=== PATIENT | male | born 1985 | race Caucasian/White ===

== ENCOUNTER → 2022-01-14 08:51 | Outpatient (BNVA) | payer MEDICAID, SELFPAY | PROVIDERS: Visit Provider Physician Assistant | DX: M47.22 Other spondylosis with radiculopathy, cervical region (principal); M54.6 Pain in thoracic spine; M47.814 Spondylosis without myelopathy or radiculopathy, thoracic region | CPT/HCPCS: 72050; 72072 ==

== ENCOUNTER 2022-07-15 13:16 | Emergency (ER) | payer MEDICAID, SELFPAY ==
[2022-07-15 13:40] VITALS: BP 134/83; PULSE 68; RESP 16; TEMP 36.6; O2SAT 99
--- NOTE | 2022-07-15 13:45 | PC.NURSE ---
Pt placed in ER posey bed, report to charge nurse Kaila SANTANA and Dr Kay
--- NOTE | 2022-07-15 14:02 | CT_ITS ---
WS: [id number] CT CERVICAL TRAUMA TECHNIQUE: Noncontrast CT of the cervical spine with coronal and sagittal reformatted images. CLINICAL INFORMATION: trauma COMPARISON: None. DLP: 1353.[address] scans at [facility] use at least one of these dose optimization techniques: automated e xposure control; mA and/or kV adjustment per patient size (includes targeted exams where dose is matc hed to clinical indication); or iterative reconstruction. FINDINGS:Mild compression superior endplate T1 with mild anterior wedging and tiny anterior superior corner fracture or osteophyte. This is age indeterminant and could be further evaluated with MRI. Mild central canal stenosis C6-C7 due to disc osteophyte complex. Mild bilateral foraminal narrowing. Mild Facet arthropathy. Mild bony foraminal narrowing RIGHT C3-C4 and C4-C5. Straightening of the normal cervical lordosis. Normal craniocervical junction. Normal C1-C2 articulat ion. Dens is normal in appearance. Normal occipital condyles. No high-grade spinal canal narrowing. N ormal C1 ring. Normal prevertebral soft tissues. Mastoids air cells are well aerated. CT/CT cervical spin wo con* [id number] IMPRESSION: 1. Mild compression superior endplate T1 with mild anterior wedging and tiny a nterior superior corner fracture or osteophyte. This is age indeterminant and c ould be further evaluated with MRI. 2. Mild central canal stenosis C6-C7 due to disc osteophyte complex with mild bilateral foraminal narrowing. Mild facet arthropathy at this level. 3. Mild bony foraminal narrowing RIGHT C3-C4, RIGHT C4-C5, and bilateral C6-C7 . 4. Mild facet arthropathy worse at C6-C7. Notified Marvin Kay DO at 07/15/2022 3:44 PM.
--- NOTE | 2022-07-15 14:04 | CT_ITS ---
WS: [id number] EXAMINATION: CT head wo con* [id number] REASON FOR EXAM: trauma COMPARISON: None available. ORDER DATE: 07/15/2022 2:24 PM TOTAL EXAM DLP: 1353.[address] scans at [facility] use at least one of these dose optimization techniques: automated ex posure control; mA and/or kV adjustment per patient size (includes targeted exams where dose is match ed to clinical indication); or iterative reconstruction. TECHNIQUE: AXIAL IMAGING WITH 2-D REFORMATS WITHOUT CONTRAST FINDINGS: Extra axial spaces: Normal in size and morphology for the patient's age.. Hemorrhage: No evidence of subarachnoid hemorrhage. Ventricular system: Normal in size and morphology for the patient's age.. Basal cisterns: The basilar cisterns are patent.. Cerebral parenchyma: Burris-white matter differentiation is maintained.. Midline shift: No midline shift or mass effect. . Cerebellum: Normal. Brainstem: Normal. Calvarium: Intact. Focal convex bulge which is well-circumscribed and contains a tiny central density that may represent some calcification is located in the right forehead. Vascular system: Normal. Visualized Paranasal sinuses: Partially visualized demonstrate extensive infiltrate near completely o pacifying the ethmoidal sinuses with minor mucosal thickening in the base of the frontal sinuses and visualized maxillary sinuses.. Visualized Orbits unremarkable CT/CT head wo con* [id number] IMPRESSION: Focal nodule in the subcutaneous tissue of the anterior scalp a represent a adeel aceous cyst, dermoid, or chronic hematoma having underwent some calcification, physical examination recommended for further evaluation. Acute ethmoid sinusitis with minor mucosal changes in the additional sinuses.
--- NOTE | 2022-07-15 14:16 | ED_ITS ---
HPI - Fall General: Chief Complaint: Fall Stated Complaint: fall off a backhoe Time Seen by Provider: 07/15/22 13:50 Source: patient Mode of arrival: ambulatory History of Present Illness: 36-year-old female presents emergency room he fell 4 to 5 feet landing on his head and neck this fall was partially broken when his left hip hit a tire but it spun his upper torso around so he landed on his neck and head. There was a potential brief loss of consciousness. He is having severe pain radiating down his right arm is also having discomfort into his right leg. He pain is worsened whenever he moves his arm or moves his head in the least he is splinting his pain on the exam cot when I first seen the patient. He is not on any anticoagulants no significant past medical history MD complaint: fall Fall from: from height (distance) (4 to 5 feet) Fall witnessed: yes, by bystander Place fall occurred: work Loss of consciousness: Unsure Prolonged down time: no Symptoms prior to fall: none Context: tripped/slipped Location of injury: head and neck Location of injury - extremities: Right: arm Quality: burning and sharp Associated symptoms-after fall: Reports neck pain; Denies abdominal pain, chest pain, confusion, difficulty walking, headache(s), hematuria, lightheadedness, numbness, short of breath, vertigo or weakness Review of Systems Const: Denies: fever(s), chills, body aches, change in appetite, fatigue or malaise ENMT: Denies: throat pain, ear or mastoid pain, nasal discharge or nasal congestion Card: Denies: chest pain or lightheadedness Resp: Denies: dyspnea, productive cough or non-productive cough GI: Denies: abdominal pain : Denies: hematuria Musc: Reports: neck pain Skin/Breast: Denies: rash or pruritus Neuro: Denies: headache(s), difficulty walking, vertigo or confusion Physical Exam Const: COMMON NORMALS: no acute distress GENERAL APPEARANCE: cooperative and comfortable ORIENTATION/CONSCIOUSNESS: Yes awake, Yes oriented to person, Yes oriented to place and Yes oriented to time HENMT: COMMON NORMALS: normocephalic, atraumatic and hearing grossly normal bilaterally HEAD & SCALP: normocephalic and atraumatic Neck/C-Spine: CERVICAL SPINE: Yes pain with cervical ROM and Yes Cervical spine tenderness Resp: COMMON NORMALS: normal respiratory effort, No retractions, No use of accessory muscles and clear to auscultation bilaterally AUSCULTATION: clear to auscultation bilaterally Cardio: COMMON NORMALS: regular rate, regular rhythm and No murmurs present (Cardio) RATE: regular rate RHYTHM: regular rhythm GI: COMMON NORMALS: Soft to palpation and No hepatosplenomegaly present AUSCULTATION: Yes normoactive bowel sounds PALPATION: Yes Soft to palpation, No Tenderness to palpation present (GI), No Guarding due to palpation present (GI) and Yes No hepatosplenomegaly present Extremity: COMMON NORMALS: normal to inspection, capillary refill normal, no clubbing, cyanosis or edema, no calf tenderness and no pedal edema Neuro: SENSORIUM/ORIENTATION: Yes oriented to person, Yes oriented to place and Yes oriented to time Skin: COMMON NORMALS: no rashes or lesions noted GENERAL SKIN EXAM: no rashes or lesions noted Course Vital Signs: Vital signs: Vital Signs Temperature 97.8 F 07/15/22 13:40 Pulse Rate 65 07/15/22 18:32 Respiratory Rate 17 07/15/22 18:32 Blood Pressure 134/83 07/15/22 13:40 Pulse Oximetry 94 07/15/22 18:32 Oxygen Delivery Me thod Room Air 07/15/22 13:40 MDM - Fall Medical Decision Making CT shows questionable T1 compression fracture MRI shows same suspect that is acute given his pain level and recent events no cord compression or nerve root compression at this time. We will discharge patient home set him up with steroid taper pain medication muscle relaxers follow-up in orthopedic spine clinic return if is worsening symptoms Medical Records I reviewed the patient's medical records. Lab Data I reviewed the patient's lab results. 07/15/22 14:17 07/15/22 14:17 Radiology Impressions Cervical Spine CT 07/15/22 14:02 IMPRESSION: 1. Mild compression superior endplate T1 with mild anterior wedging and tiny anterior superior corner fracture or osteophyte. This is age indeterminant and could be further evaluated with MRI. 2. Mild central canal stenosis C6-C7 due to disc osteophyte complex with mild bilateral foraminal narrowing. Mild facet arthropathy at this level. 3. Mild bony foraminal narrowing RIGHT C3-C4, RIGHT C4-C5, and bilateral C6-C7. 4. Mild facet arthropathy worse at C6-C7. Notified Marvin Kay DO at 07/15/2022 3:[address] 07/15/22 14:04 IMPRESSION: Focal nodule in the subcutaneous tissue of the anterior scalp a represent a sebaceous cyst, dermoid, or chronic hematoma having underwent some calcification, physical examination recommended for further evaluation. Acute ethmoid sinusitis with minor mucosal changes in the additional sinuses. Cervical Spine MRI 07/15/22 15:49 IMPRESSION: 1. No acute findings. 2. Chronic anterior/superior endplate T1 10% compression deformity is unchanged with the comparison CT scan. 3. Multilevel degenerative changes with mild spinal canal stenosis at C6-C7 as described. Laboratory Results WBC 6.6 10^3/uL (4.0-10.0) 07/15/22 14:17 RBC 5.18 10^6/uL (4.1-5.3) 07/15/22 14:17 Hgb 16.2 g/dL (11.7-16.6) 07/15/22 14:17 Hct 45.9 % (42.0-52.0) 07/15/22 14:17 MCV 88.6 fl (80-94) 07/15/22 14:17 MCH 31.3 pg (28.0-34.0) 07/15/22 14:17 MCHC 35.3 g/dL (30.0-36.0) 07/15/22 14:17 RDW 11.6 % (12.1-15.1) L 07/15/22 14:17 Plt Count 266 10^3/cmm (130-400) 07/15/22 14:17 MPV 9.3 fL (7.4-10.4) 07/15/22 14:17 Neut % (Auto) 68.1 % 07/15/22 14:17 Lymph % (Auto) 20.2 % 07/15/22 14:17 Drew % (Auto) 8.5 % 07/15/22 14:17 Eos % (Auto) 2.7 % 07/15/22 14:17 Baso % (Auto) 0.3 % 07/15/22 14:17 Neut # (Auto) 4.47 10^3/uL (1.8-7.7) 07/15/22 14:17 Lymph # (Auto) 1.3 10^3/uL (0.8-4.8) 07/15/22 14:17 Drew # (Auto) 0.6 10^3/uL (0.2-0.9) 07/15/22 14:17 Eos # (Auto) 0.2 10^3/uL (0.0-0.8) 07/15/22 14:17 Baso # (Auto) 0.0 10^3/uL (0.0-0.1) 07/15/22 14:17 Nucleated RBC % (auto) 0 % 07/15/22 14:17 Nucleated RBCs # 0.0 /100WBC 07/15/22 14:17 Sodium 138 mmol/L (136-145) 07/15/22 14:17 Potassium 4.1 mmol/L (3.5-5.1) 07/15/22 14:17 Chloride 103 mmol/L (98-107) 07/15/22 14:17 Carbon Dioxide 26 mmol/L (22-29) 07/15/22 14:17 Anion Gap 13.1 (5-19) 07/15/22 14:17 BUN 12 mg/dL (6-20) 07/15/22 14:17 Creatinine 1.0 mg/dL (0.7-1.2) 07/15/22 14:17 GFR Calculation 85.0 mL/min (90-130) L 07/15/22 14:17 Glucose 72 mg/dL (65-115) 07/15/22 14:17 Calculated Osmolality 284 mOsm/kg (285-295) L 07/15/22 14:17 Calcium 8.4 mg/dL (8.5-10.5) L 07/15/22 14:17 Total Bilirubin 0.4 mg/dL (0.15-1.2) 07/15/22 14:17 AST 21 U/L (0-40) 07/15/22 14:17 ALT 32 U/L (0-41) 07/15/22 14:17 Alkaline Phosphatase 85 U/L (40-130) 07/15/22 14:17 Total Protein 7.0 g/dL (6.6-8.7) 07/15/22 14:17 Albumin 4.1 g/dL (3.5-5.2) 07/15/22 14:17 Globulin 2.9 g/dL (1.3-4.6) 07/15/22 14:17 Discharge Plan Discharge Patient Disposition: Home Clinical Impression: Compression fracture of thoracic vertebra Condition: Stable Prescriptions: New tizanidine 4 mg tablet 4 mg PO Q6H PRN (Reason: muscle spasticity) Qty: 20 0RF Rx Instructions: do not exceed 3 doses per 24 hrs hydrocodone-acetaminophen 5-325 mg tablet 1 tab PO Q6H PRN (Reason: pain) Qty: 20 0RF prednisone 20 mg tablet 20 mg PO TID Qty: 15 0RF Rx Instructions: 1 p.o. 3 times daily x3 days, 1 p.o. twice daily x2 days, 1 p.o. daily x2 days Discontinued prednisone 20 mg tablet 20 mg PO DAILY Qty: 15 0RF Rx Instructions: 60 mg day 1.2.3. 40 mg day 4.5 20 mg day 6.7 hydrocodone-acetaminophen 5-325 mg tablet 1 tab PO .q4-6 PRN (Reason: pain) 5 Days Qty: 30 0RF Discharge Orders: Discharge ED (Routine); Ordered 07/15/22 Ordered By: Marvin Kay Discharge Diet: Usual diet Discharge Activity: Resume usual activity Patient Instructions: Opioid Safety, Pain Management Activity Restrictions/Additional Instructions: You are seen today with a thoracic compression fracture after your fall. MRI showed no neural impingement and no acute narrowing of the spinal canal. special events manager will make arrangements for you to follow-up with Dr. Block at the orthopedics clinic. Coding Level of Care Code ED Skin Diving Teacher for Curtis Juarez
[2022-07-15 14:23] VITALS: RESP 17
[2022-07-15] MEDS: morphine 4 mg/mL SDV 1 mL IVP ×3 (14:23→18:18)
[2022-07-15] MEDS: dexamethasone 10 mg/mL INJ IVP (14:23)
[2022-07-15 14:26] LABS: Basophils % 0.3 %; Eosinophils # 0.2 10^3/uL (0.0-0.8); Eosinophils % 2.7 %; Hematocrit 45.9 % (42.0-52.0); Hemoglobin 16.2 g/dL (11.7-16.6); Lymphocytes # 1.3 10^3/uL (0.8-4.8); Lymphocytes % 20.2 %; Mean Corpuscular HGB Conc 35.3 g/dL (30.0-36.0); Mean Corpuscular Hemoglobin 31.3 pg (28.0-34.0); Mean Corpuscular Volume 88.6 fl (80-94); Mean Platelet Volume 9.3 fL (7.4-10.4); Monocytes # 0.6 10^3/uL (0.2-0.9); Monocytes % 8.5 %; Neutrophils # 4.47 10^3/uL (1.8-7.7); Neutrophils % 68.1 %; Nucleated Red Blood Cells % 0 %; Platelet Count 266 10^3/cmm (130-400); Red Blood Count 5.18 10^6/uL (4.1-5.3); Red Cell Distribution Width 11.6 % (12.1-15.1); White Blood Count 6.6 10^3/uL (4.0-10.0)
[2022-07-15 14:50] LABS: Alanine Aminotransferase 32 U/L (0-41); Albumin Level 4.1 g/dL (3.5-5.2); Alkaline Phosphatase 85 U/L (40-130); Anion Gap 13.1 (5-19); Aspartate Amino Transferase 21 U/L (0-40); Blood Urea Nitrogen 12 mg/dL (6-20); Calcium 8.4 mg/dL (8.5-10.5); Carbon Dioxide 26 mmol/L (22-29); Chloride 103 mmol/L (98-107); Globulin 2.9 g/dL (1.3-4.6); Glucose 72 mg/dL (65-115); Osmolality Calculated 284 mOsm/kg (285-295); Potassium 4.1 mmol/L (3.5-5.1); Sodium 138 mmol/L (136-145); Total Bilirubin 0.4 mg/dL (0.15-1.2)
[2022-07-15 15:41] VITALS: RESP 18
--- NOTE | 2022-07-15 15:49 | MRR_ITS ---
PROCEDURE INFORMATION: Exam: MR Cervical Spine Without Contrast Exam date and time: 07/15/2022 4:38 PM Age: 36 years old Clinical indication: Pain and injury or trauma; Fall; Other: Fell from backhoe; Cervicalgia and neck pain and radicular pain (radiculopathy); Cervical region TECHNIQUE: Imaging protocol: Magnetic resonance imaging of the cervical spine without contrast. COMPARISON: CT cervical spin wo con* [id number] 07/15/2022 2:31 PM FINDINGS: Bones/joints: Cervical spinal alignment is near anatomic. There is mild anterior/superior endplate height loss at T1 which is unchanged with the comparison CT scan approximate 10% which is chronic in appearance on MRI. No acute fracture is seen. No suspicious marrow signal abnormality. Spinal cord: Normal signal. No cord compression. C2-C3: No significant disc bulge or herniation. No severe spinal canal stenosis. No significant neural foraminal narrowing. C3-C4: C3-C4 uncovertebral and facet joint osteophyte is present with severe narrowing of both neural foramen. The spinal canal is patent. C4-C5: C4-C5 uncovertebral and facet on osteophyte are present with moderate right and mild left neural foraminal stenosis. The spinal canal is patent. C5-C6: No significant disc bulge or herniation. No severe spinal canal stenosis. No significant neural foraminal narrowing. C6-C7: C6-C7 diffuse disc bulging and dorsal endplate osteophyte causes mild stenosis of the spinal canal. There is also severe narrowing of the bilateral neural foramen due to osteophyte. C7-T1: No significant disc bulge or herniation. No severe spinal canal stenosis. No significant neural foraminal narrowing. Soft tissues: Unremarkable. Vasculature: Expected flow voids in the vertebral arteries. MR/MR cervical spin wo con* [id number] IMPRESSION: 1. No acute findings. 2. Chronic anterior/superior endplate T1 10% compression deformity is unchanged with the comparison CT scan. 3. Multilevel degenerative changes with mild spinal canal stenosis at C6-C7 as described.
[2022-07-15 18:18] VITALS: RESP 17
[2022-07-15 18:32] VITALS: PULSE 65; RESP 17; O2SAT 94
--- NOTE | 2022-07-16 07:51 | DCPLANNER ---
Addendum entered by Debbie Miranda 07/23/22 08:06: Patient had a follow up appointment scheduled with ortho - patient did attend appointment. Addendum entered by Debbie Miranda 07/16/22 10:24: Patient has a follow up appointment scheduled for Wednesday, July 20, 2022 at 2:[address] Block at ortho. Original Note: specification manager had message to schedule a follow up appointment for patient with ortho. specification manager sent patients information to the front office staff at ortho. Patients information will be printed and reviewed. Clinic will call patient with appointment information.
--- NOTE | 2022-07-21 11:59 | DCPLANNER ---
manager subway called patient due to no primary care physician - patients mother stated that patient sees Annette Matta at [facility].
== END 2022-07-15 18:33 | disposition home or self-care (01) ==
PROVIDERS: Emergency Provider Family Medicine; PCP Nurse Practitioner Family
DX: S22.019A Unspecified fracture of first thoracic vertebra, initial encounter for closed fracture (principal); W17.89XA Other fall from one level to another, initial encounter
CPT/HCPCS: 36415; 70450; 72125; 72141; 80053; 85025; 96374; 96375; 96376; 99285; J1100; J2270

== ENCOUNTER → 2022-07-20 14:00 | Outpatient (BNVA) | payer MEDICAID, SELFPAY | PROVIDERS: Referring Provider Family Medicine; Visit Provider Orthopaedic Surgery | DX: S22.000A Wedge compression fracture of unspecified thoracic vertebra, initial encounter for closed fracture (principal); W17.89XA Other fall from one level to another, initial encounter; M47.812 Spondylosis without myelopathy or radiculopathy, cervical region; M47.814 Spondylosis without myelopathy or radiculopathy, thoracic region; S20.229A Contusion of unspecified back wall of thorax, initial encounter | CPT/HCPCS: 72040; 72070 ==